=== PATIENT | male | born 1975 | race Asian ===

== ENCOUNTER 2022-12-23 16:54 | Emergency (ER) | payer OTHER ==
[~2022-12-23] VITALS: Ht 172.7 cm; Wt 88.5 kg
[2022-12-23] MEDS ORDERED: HYDR-4038 PO (17:01)
[2022-12-23] MEDS ORDERED: LOSA100T23 PO (17:01)
[2022-12-23] MEDS ORDERED: METF-379 PO (17:01)
[2022-12-23] MEDS ORDERED: LABE200T9 PO (17:01)
[2022-12-23 17:02] VITALS: BP_SYST 177; PULSE 90; RESP 16; TEMP 97.4; O2SAT 96
[2022-12-23 18:26] LABS: BASOPHILS # (AUTO) 0.1 K/uL (0.0-0.2); BASOPHILS % (AUTO) 0.8 % (0.0-2.0); EOSINOPHILS # (AUTO) 0.4 K/uL (0.0-0.4); EOSINOPHILS % (AUTO) 4.7 % (0.0-4.0); HEMATOCRIT 42.1 % (36-54); HEMOGLOBIN 13.8 g/dL (14.0-18.0); LYMPHOCYTES # (AUTO) 2.2 K/uL (1.0-5.5); LYMPHOCYTES % (AUTO) 26.1 % (20.5-51.5); MEAN CORPUSCULAR HEMOGLOBIN 28 pg (27-31); MEAN CORPUSCULAR HGB CONC 33 % (32-36); MEAN CORPUSCULAR VOLUME 84 fL (79.0-98.0); MONOCYTES # (AUTO) 0.8 K/uL (0.0-1.0); NEUTROPHILS # (AUTO) 5.1 K/uL (1.8-7.7); NEUTROPHILS % (AUTO) 59.4 % (40.0-70.0); PLATELET COUNT (AUTO) 254 K/uL (130-430); RED BLOOD CELL COUNT(AUTO) 4.99 MIL/uL (4.2-6.2); RED CELL DISTRIBUTION WIDTH 14.3 % (9.0-15.0); WHITE BLOOD COUNT (AUTO) 8.6 K/uL (4.8-10.8)
[2022-12-23 18:28] LABS: ERYTHROCYTE SEDIMENTATION RATE 10 MM/HR (0-15)
[2022-12-23] MEDS ORDERED: METOCLOPRAMIDE HCL 10 MG/2 ML VIAL IVP ONE (18:30)
[2022-12-23] MEDS ORDERED: DIPHENHYDRAMINE INJ 50 MG/ML VIAL IVP ONE (18:30)
[2022-12-23 18:31] LABS: CALCIUM 9.5 mg/dL (8.4-11.0); CREATININE 1.16 mg/dL (0.55-1.30); POTASSIUM 3.6 mmol/L (3.5-5.1)
[2022-12-23 18:34] LABS: PROTHROMBIN TIME 9.9 SECS (9.5-12.5)
[2022-12-23 18:56] LABS: ALBUMIN 4.1 g/dL (3.4-4.8); TOTAL BILIRUBIN 0.4 mg/dL (0.0-1.0); TOTAL PROTEIN, SERUM 7.5 g/dL (6.4-8.3)
[2022-12-23] MEDS ORDERED: IBUP-1971 PO (19:49)
[2022-12-23] MEDS ORDERED: HYDR-3927 PO (19:50)
[2022-12-23 20:29] VITALS: BP_SYST 143; PULSE 72; RESP 19; O2SAT 99
== END 2022-12-23 20:29 | disposition home or self-care (01) ==
LOC: SED 16:54
DX: R51.9 Headache, unspecified (principal); I10 Essential (primary) hypertension; Z79.899 Other long term (current) drug therapy
CPT/HCPCS: 99285; 96374; 70450; 96375; 80053; 85025; 85610; 85651; 85730; 36415; 76376; 82397; J1200; J2765

== ENCOUNTER 2023-01-08 16:34 | Emergency (ER) | payer OTHER ==
[~2023-01-08] VITALS: Ht 172.7 cm; Wt 88.5 kg
[~2023-01-08 16:34] MED LIST: HYDR-3927 PO; HYDR-4038 PO; IBUP-1971 PO; LABE200T9 PO; LOSA100T24 PO; METF-379 PO
[2023-01-08 16:55] VITALS: BP_SYST 158; PULSE 79; RESP 18; TEMP 98.2; O2SAT 96
[2023-01-08] MEDS ORDERED: LORA10CA PO (17:47)
[2023-01-08] MEDS ORDERED: IBUP-1971 PO (17:47)
== END 2023-01-08 17:55 | disposition home or self-care (01) ==
LOC: SED 16:34
DX: R51.9 Headache, unspecified (principal); R09.81 Nasal congestion; Z79.899 Other long term (current) drug therapy
CPT/HCPCS: 99282

== ENCOUNTER 2023-01-17 08:49 | Inpatient (IN) | payer OTHER ==
[~2023-01-17] VITALS: Ht 172.7 cm; Wt 88.5 kg
[~2023-01-17 08:49] MED LIST changes: +LORA10CA PO
[2023-01-17 09:00] VITALS: BP_SYST 180; PULSE 80; RESP 18; TEMP 98.3; O2SAT 96
[2023-01-17] MEDS ORDERED: ONDANSETRON HCL 4 MG/2 ML VIAL IVP ONE (09:15)
[2023-01-17] MEDS ORDERED: KETOROLAC TROMETHAMINE 30 MG VIAL IVP ONE (09:15)
[2023-01-17] MEDS ORDERED: NACL 0.9% 1,000 ML IV ONE (09:15)
[2023-01-17 09:50] LABS: BASOPHILS % (AUTO) 0.6 % (0.0-2.0); EOSINOPHILS # (AUTO) 0.2 K/uL (0.0-0.4); EOSINOPHILS % (AUTO) 2.7 % (0.0-4.0); HEMATOCRIT 42.5 % (36-54); HEMOGLOBIN 13.9 g/dL (14.0-18.0); LYMPHOCYTES # (AUTO) 0.9 K/uL (1.0-5.5); LYMPHOCYTES % (AUTO) 10.6 % (20.5-51.5); MEAN CORPUSCULAR HEMOGLOBIN 28 pg (27-31); MEAN CORPUSCULAR HGB CONC 33 % (32-36); MEAN CORPUSCULAR VOLUME 84 fL (79.0-98.0); MONOCYTES # (AUTO) 0.6 K/uL (0.0-1.0); MONOCYTES % (AUTO) 6.7 % (1.7-9.3); NEUTROPHILS # (AUTO) 6.5 K/uL (1.8-7.7); NEUTROPHILS % (AUTO) 79.4 % (40.0-70.0); PLATELET COUNT (AUTO) 261 K/uL (130-430); RED BLOOD CELL COUNT(AUTO) 5.05 MIL/uL (4.2-6.2); RED CELL DISTRIBUTION WIDTH 14.4 % (9.0-15.0); WHITE BLOOD COUNT (AUTO) 8.2 K/uL (4.8-10.8)
[2023-01-17 09:59] LABS: BILIRUBIN,URINE NEGATIVE (NEGATIVE); BLOOD, URINE NEGATIVE (NEGATIVE); CLARITY/URINE Clear (CLEAR); COLOR,URINE YELLOW (YELLOW); GLUCOSE,URINE NEGATIVE (NEGATIVE); KETONES,URINE NEGATIVE (NEGATIVE); LEUKOCYTE ESTERASE ,URINE NEGATIVE (NEGATIVE); NITRITE, URINE NEGATIVE (NEGATIVE); PROTEIN URINE NEGATIVE (NEGATIVE); UROBILINOGEN,URINE 0.2 (0.2-1.0)
[2023-01-17 09:59] LABS: CALCIUM 9.4 mg/dL (8.4-11.0); CREATININE 0.91 mg/dL (0.55-1.30); POTASSIUM 3.6 mmol/L (3.5-5.1)
[2023-01-17 10:07] LABS: ALBUMIN 4.2 g/dL (3.4-4.8); TOTAL BILIRUBIN 1.2 mg/dL (0.0-1.0); TOTAL PROTEIN, SERUM 7.9 g/dL (6.4-8.3)
[2023-01-17] MEDS ORDERED: LABETALOL 100 MG/ 20ML VIAL IVP ONE (10:45)
[2023-01-17] MEDS ORDERED: MORPHINE 4 MG INJ. 4 MG/ML VIAL IVP ONE (10:45)
[2023-01-17] MEDS: hydrALAZINE HCL 20 MG/ML VIAL IVP PRN (15:02)
[2023-01-17] MEDS ORDERED: ATOR40TA68 PO (17:20)
[2023-01-17] MEDS ORDERED: AMLO5TAB92 PO (17:20)
[2023-01-17] MEDS ORDERED: NALOXONE HCL 0.4 MG/ML AMP (NARCAN) IVP PRN ×3 (18:30→22:00)
[2023-01-17] MEDS ORDERED: MORPHINE 4 MG INJ. 4 MG/ML VIAL IVP PRN (18:30)
[2023-01-17] MEDS ORDERED: MORPHINE 2 MG/ML INJ. SYRINGE IVP PRN (18:30)
[2023-01-17 20:00] VITALS: BP_SYST 130; PULSE 119; RESP 18; TEMP 99.8; O2SAT 95
[2023-01-17] MEDS: METOPROLOL SUCCINATE 25 MG TAB.SR.24H (TOPROL XL) PO SCH (20:42)
[2023-01-17] MEDS ORDERED: ONDANSETRON HCL 4 MG/2 ML VIAL IVP PRN (22:00)
[2023-01-17] MEDS ORDERED: LORazepam 2 MG/ML VIAL IVP PRN (22:00)
[2023-01-17 22:02] VITALS: BP_SYST 130; PULSE 91; RESP 18; TEMP 99.8; O2SAT 95
[2023-01-17] MEDS: NACL 0.9% 1,000 ML IV SCH (23:15)
[2023-01-17] MEDS: NORMAL SALINE 5 ML DISP.SYRIN IVF SCH (23:25)
[2023-01-17] MEDS: ACETAMINOPHEN 325 MG TABLET PO PRN (23:25)
[2023-01-17] MEDS: INSULIN REGULAR, HUMAN 100 UNITS/ML, 3 ML VIAL (humuLIN R) SUBCUT PRN (23:51)
[2023-01-18] VITALS (11 sets, daily range): BP systolic 126–157; PULSE 78–126; RESP 17–20; TEMP 98.5–99.4; O2SAT 96–98
[2023-01-18 05:28] LABS: BASOPHILS % (AUTO) 0.1 % (0.0-2.0); HEMATOCRIT 41.6 % (36-54); HEMOGLOBIN 13.7 g/dL (14.0-18.0); LYMPHOCYTES # (AUTO) 0.4 K/uL (1.0-5.5); LYMPHOCYTES % (AUTO) 4.1 % (20.5-51.5); MEAN CORPUSCULAR HEMOGLOBIN 28 pg (27-31); MEAN CORPUSCULAR HGB CONC 33 % (32-36); MEAN CORPUSCULAR VOLUME 84 fL (79.0-98.0); MONOCYTES # (AUTO) 0.2 K/uL (0.0-1.0); MONOCYTES % (AUTO) 2.3 % (1.7-9.3); NEUTROPHILS # (AUTO) 10.1 K/uL (1.8-7.7); NEUTROPHILS % (AUTO) 93.5 % (40.0-70.0); PLATELET COUNT (AUTO) 227 K/uL (130-430); RED BLOOD CELL COUNT(AUTO) 4.94 MIL/uL (4.2-6.2); RED CELL DISTRIBUTION WIDTH 14.6 % (9.0-15.0); WHITE BLOOD COUNT (AUTO) 10.8 K/uL (4.8-10.8)
[2023-01-18] MEDS: NORMAL SALINE 5 ML DISP.SYRIN IVF SCH ×3 (06:14→20:26)
[2023-01-18 06:25] LABS: ALBUMIN 3.6 g/dL (3.4-4.8); CALCIUM 8.6 mg/dL (8.4-11.0); CREATININE 1.58 mg/dL (0.55-1.30); PHOSPHORUS 5.5 mg/dL (2.7-4.5); POTASSIUM 3.9 mmol/L (3.5-5.1); TOTAL BILIRUBIN 4.6 mg/dL (0.0-1.0); TOTAL PROTEIN, SERUM 7.2 g/dL (6.4-8.3)
[2023-01-18] MEDS: LORATADINE 10 MG TABLET PO SCH (08:48)
[2023-01-18] MEDS: LOSARTAN POTASSIUM 50 MG TABLET (COZAAR) PO SCH (08:48)
[2023-01-18] MEDS: METOPROLOL SUCCINATE 25 MG TAB.SR.24H (TOPROL XL) PO SCH ×2 (08:49→20:22)
[2023-01-18] MEDS: hydrALAZINE HCL 25 MG TABLET PO SCH (08:49)
[2023-01-18] MEDS: amLODIPine BESYLATE 5 MG TABLET PO SCH (08:50)
[2023-01-18] MEDS ORDERED: LABETALOL HCL 100 MG TABLET PO SCH (09:00)
[2023-01-18] MEDS: ACETAMINOPHEN 325 MG TABLET PO PRN ×2 (13:55→18:43)
[2023-01-18] MEDS: hydrALAZINE HCL 20 MG/ML VIAL IVP PRN (18:42)
[2023-01-18 19:18] LABS: CALCIUM 8.7 mg/dL (8.4-11.0); CREATININE 1.24 mg/dL (0.55-1.30); POTASSIUM 3.8 mmol/L (3.5-5.1)
[2023-01-18] MEDS: INSULIN REGULAR, HUMAN 100 UNITS/ML, 3 ML VIAL (humuLIN R) SUBCUT PRN (20:26)
[2023-01-18] MEDS: HYDROcodone/ACETAMIN 10-325 MG TAB PO PRN (20:31)
[2023-01-18] MEDS ORDERED: ATORVASTATIN 20 MG TABLET PO SCH (21:00)
[2023-01-19] VITALS (9 sets, daily range): BP systolic 147–162; PULSE 63–103; RESP 17–20; TEMP 96.9–98.8; O2SAT 95–98
[2023-01-19] MEDS ORDERED: hydrALAZINE HCL 20 MG/ML VIAL ONE (00:46)
[2023-01-19] MEDS: hydrALAZINE HCL 20 MG/ML VIAL IVP PRN ×2 (00:55→16:35)
[2023-01-19] MEDS: HYDROcodone/ACETAMIN 10-325 MG TAB PO PRN ×3 (00:55→17:55)
[2023-01-19] MEDS: NACL 0.9% 1,000 ML IV SCH (00:56)
[2023-01-19] MEDS: NORMAL SALINE 5 ML DISP.SYRIN IVF SCH ×3 (03:19→22:00)
[2023-01-19] MEDS: INSULIN REGULAR, HUMAN 100 UNITS/ML, 3 ML VIAL (humuLIN R) SUBCUT PRN ×4 (05:36→22:05)
[2023-01-19 07:11] LABS: BASOPHILS % (AUTO) 0.2 % (0.0-2.0); EOSINOPHILS % (AUTO) 0.6 % (0.0-4.0); HEMATOCRIT 40.9 % (36-54); HEMOGLOBIN 13.4 g/dL (14.0-18.0); LYMPHOCYTES # (AUTO) 0.4 K/uL (1.0-5.5); LYMPHOCYTES % (AUTO) 6.6 % (20.5-51.5); MEAN CORPUSCULAR HEMOGLOBIN 28 pg (27-31); MEAN CORPUSCULAR HGB CONC 33 % (32-36); MEAN CORPUSCULAR VOLUME 85 fL (79.0-98.0); MONOCYTES # (AUTO) 0.4 K/uL (0.0-1.0); MONOCYTES % (AUTO) 6.7 % (1.7-9.3); NEUTROPHILS # (AUTO) 5.1 K/uL (1.8-7.7); NEUTROPHILS % (AUTO) 85.9 % (40.0-70.0); PLATELET COUNT (AUTO) 206 K/uL (130-430); RED BLOOD CELL COUNT(AUTO) 4.84 MIL/uL (4.2-6.2); RED CELL DISTRIBUTION WIDTH 14.5 % (9.0-15.0); WHITE BLOOD COUNT (AUTO) 5.9 K/uL (4.8-10.8)
[2023-01-19 07:17] LABS: ALBUMIN 3.3 g/dL (3.4-4.8); CALCIUM 8.5 mg/dL (8.4-11.0); CREATININE 0.99 mg/dL (0.55-1.30); POTASSIUM 3.7 mmol/L (3.5-5.1)
[2023-01-19] MEDS: LORATADINE 10 MG TABLET PO SCH (09:14)
[2023-01-19] MEDS: hydrALAZINE HCL 25 MG TABLET PO SCH (09:14)
[2023-01-19] MEDS: LOSARTAN POTASSIUM 50 MG TABLET (COZAAR) PO SCH (09:14)
[2023-01-19] MEDS: amLODIPine BESYLATE 5 MG TABLET PO SCH (09:15)
[2023-01-19] MEDS: METOPROLOL SUCCINATE 25 MG TAB.SR.24H (TOPROL XL) PO SCH (09:16)
[2023-01-19] MEDS ORDERED: LABETALOL HCL 20 MG/4 ML CARTRIDGE IVP PRN (13:45)
[2023-01-19 14:58] LABS: BILIRUBIN,URINE 1+ (NEGATIVE); BLOOD, URINE NEGATIVE (NEGATIVE); CLARITY/URINE Clear (CLEAR); GLUCOSE,URINE Trace (NEGATIVE); KETONES,URINE NEGATIVE (NEGATIVE); LEUKOCYTE ESTERASE ,URINE NEGATIVE (NEGATIVE); NITRITE, URINE NEGATIVE (NEGATIVE); PROTEIN URINE 1+ (NEGATIVE)
[2023-01-19 15:22] LABS: COLOR,URINE AMBER (YELLOW); RBC,URINE NONE SEEN /HPF (0-3); WBC,URINE 0-3 /HPF (0-3)
[2023-01-19 15:23] LABS: BACTERIA,URINE None Seen /HPF (None Seen); MUCUS,URINE None Seen /LPF (None Seen)
[2023-01-19] MEDS: ACETAMINOPHEN 325 MG TABLET PO PRN (22:13)
[2023-01-20] VITALS: BP_SYST 144; PULSE 84; RESP 18; TEMP 97; O2SAT 99
[2023-01-20 03:44] VITALS: PULSE 90
[2023-01-20] MEDS: NORMAL SALINE 5 ML DISP.SYRIN IVF SCH ×3 (06:55→22:24)
[2023-01-20] MEDS: HYDROcodone/ACETAMIN 5-325 MG TAB (NORCO/ VICODIN) PO PRN ×2 (07:03→17:47)
[2023-01-20 08:17] VITALS: BP_SYST 170; PULSE 94; RESP 17; TEMP 98.8; O2SAT 98
[2023-01-20] MEDS: LOSARTAN POTASSIUM 50 MG TABLET (COZAAR) PO SCH (08:23)
[2023-01-20] MEDS: NIFEDIPINE 90 MG TABLET.SA (PROCARDIA XL 90 MG) PO SCH (08:23)
[2023-01-20] MEDS: LORATADINE 10 MG TABLET PO SCH (08:23)
[2023-01-20 08:37] LABS: ALBUMIN 3.4 g/dL (3.4-4.8); CALCIUM 8.9 mg/dL (8.4-11.0); CREATININE 0.89 mg/dL (0.55-1.30); POTASSIUM 3.8 mmol/L (3.5-5.1); TOTAL BILIRUBIN 1.3 mg/dL (0.0-1.0); TOTAL PROTEIN, SERUM 7.7 g/dL (6.4-8.3)
[2023-01-20 08:48] LABS: BASOPHILS % (AUTO) 0.5 % (0.0-2.0); EOSINOPHILS # (AUTO) 0.1 K/uL (0.0-0.4); EOSINOPHILS % (AUTO) 2.6 % (0.0-4.0); HEMATOCRIT 42.8 % (36-54); HEMOGLOBIN 13.9 g/dL (14.0-18.0); LYMPHOCYTES # (AUTO) 0.7 K/uL (1.0-5.5); LYMPHOCYTES % (AUTO) 14.2 % (20.5-51.5); MEAN CORPUSCULAR HEMOGLOBIN 27 pg (27-31); MEAN CORPUSCULAR HGB CONC 33 % (32-36); MEAN CORPUSCULAR VOLUME 84 fL (79.0-98.0); MONOCYTES # (AUTO) 0.4 K/uL (0.0-1.0); MONOCYTES % (AUTO) 8.9 % (1.7-9.3); NEUTROPHILS # (AUTO) 3.5 K/uL (1.8-7.7); NEUTROPHILS % (AUTO) 73.8 % (40.0-70.0); PLATELET COUNT (AUTO) 228 K/uL (130-430); RED BLOOD CELL COUNT(AUTO) 5.11 MIL/uL (4.2-6.2); RED CELL DISTRIBUTION WIDTH 14.6 % (9.0-15.0); WHITE BLOOD COUNT (AUTO) 4.7 K/uL (4.8-10.8)
[2023-01-20] MEDS: hydrALAZINE HCL 20 MG/ML VIAL IVP PRN (09:50)
[2023-01-20 12:00] VITALS: BP_SYST 150; PULSE 96; RESP 16; TEMP 98.8; O2SAT 98
[2023-01-20] MEDS ORDERED: CHLORTHALIDONE 25 MG TABLET (HYGROTON) PO ONE (12:00)
[2023-01-20] MEDS: INSULIN REGULAR, HUMAN 100 UNITS/ML, 3 ML VIAL (humuLIN R) SUBCUT PRN ×2 (12:30→17:52)
[2023-01-20] MEDS ORDERED: POLYETHYLENE GLYCOL 3350, 17 GM/ POWD.PACK PO PRN (13:00)
[2023-01-20] MEDS: ACETAMINOPHEN 325 MG TABLET PO PRN (14:38)
[2023-01-20 16:00] VITALS: BP_SYST 150; PULSE 110; RESP 16; TEMP 98.8; O2SAT 97
[2023-01-20] MEDS ORDERED: cefTRIAXone 1 GM in D5W 50 ML IV SCH (19:15)
[2023-01-20 20:00] VITALS: BP_SYST 135; PULSE 98; RESP 17; TEMP 97.5; O2SAT 97
[2023-01-20] MEDS ORDERED: OMEPRAZOLE Non-Formulary 20 MG CAPSULE.DR PO SCH (21:00)
[2023-01-20] MEDS ORDERED: cefTRIAXone 1 GM VIAL ONE (22:01)
[2023-01-20] MEDS: HYDROcodone/ACETAMIN 10-325 MG TAB PO PRN (22:23)
[2023-01-20] MEDS: PANTOPRAZOLE SODIUM 40 MG/VIAL (PROTONIX) IVP SCH (23:12)
[2023-01-21] VITALS (10 sets, daily range): BP systolic 122–164; PULSE 89–115; RESP 16–18; TEMP 97.9–98.2; O2SAT 98–100
[2023-01-21] MEDS: NORMAL SALINE 5 ML DISP.SYRIN IVF SCH ×3 (06:12→22:50)
[2023-01-21 08:01] LABS: BASOPHILS % (AUTO) 0.7 % (0.0-2.0); EOSINOPHILS # (AUTO) 0.2 K/uL (0.0-0.4); EOSINOPHILS % (AUTO) 2.8 % (0.0-4.0); HEMATOCRIT 43.9 % (36-54); HEMOGLOBIN 14.5 g/dL (14.0-18.0); MEAN CORPUSCULAR HEMOGLOBIN 28 pg (27-31); MEAN CORPUSCULAR HGB CONC 33 % (32-36); MEAN CORPUSCULAR VOLUME 84 fL (79.0-98.0); MONOCYTES # (AUTO) 0.8 K/uL (0.0-1.0); MONOCYTES % (AUTO) 14.6 % (1.7-9.3); NEUTROPHILS # (AUTO) 3.6 K/uL (1.8-7.7); NEUTROPHILS % (AUTO) 63.9 % (40.0-70.0); PLATELET COUNT (AUTO) 260 K/uL (130-430); RED BLOOD CELL COUNT(AUTO) 5.25 MIL/uL (4.2-6.2); RED CELL DISTRIBUTION WIDTH 14.6 % (9.0-15.0); WHITE BLOOD COUNT (AUTO) 5.6 K/uL (4.8-10.8)
[2023-01-21 08:33] LABS: ALBUMIN 3.6 g/dL (3.4-4.8); CALCIUM 9.3 mg/dL (8.4-11.0); CREATININE 0.95 mg/dL (0.55-1.30); POTASSIUM 3.7 mmol/L (3.5-5.1); TOTAL BILIRUBIN 0.9 mg/dL (0.0-1.0); TOTAL PROTEIN, SERUM 7.9 g/dL (6.4-8.3)
[2023-01-21] MEDS: CHLORTHALIDONE 25 MG TABLET (HYGROTON) PO SCH (09:15)
[2023-01-21] MEDS: NIFEDIPINE 90 MG TABLET.SA (PROCARDIA XL 90 MG) PO SCH (09:16)
[2023-01-21] MEDS: PANTOPRAZOLE SODIUM 40 MG/VIAL (PROTONIX) IVP SCH (09:16)
[2023-01-21] MEDS: LORATADINE 10 MG TABLET PO SCH (09:17)
[2023-01-21] MEDS: LOSARTAN POTASSIUM 50 MG TABLET (COZAAR) PO SCH (09:17)
[2023-01-21] MEDS: INSULIN REGULAR, HUMAN 100 UNITS/ML, 3 ML VIAL (humuLIN R) SUBCUT PRN ×3 (11:32→21:36)
[2023-01-21] MEDS: ACETAMINOPHEN 325 MG TABLET PO PRN ×2 (15:48→21:37)
[2023-01-21] MEDS: HYDROcodone/ACETAMIN 10-325 MG TAB PO PRN (20:21)
[2023-01-21] MEDS: cefTRIAXone 1 GM in D5W 50 ML IV SCH (21:20)
[2023-01-22] VITALS (11 sets, daily range): BP systolic 129–148; PULSE 90–110; RESP 18; TEMP 96.9–99; O2SAT 96–98
[2023-01-22 06:34] LABS: ERYTHROCYTE SEDIMENTATION RATE 22 MM/HR (0-15)
[2023-01-22] MEDS: NORMAL SALINE 5 ML DISP.SYRIN IVF SCH ×3 (06:38→23:48)
[2023-01-22 06:41] LABS: BASOPHILS # (AUTO) 0.1 K/uL (0.0-0.2); BASOPHILS % (AUTO) 1.4 % (0.0-2.0); EOSINOPHILS # (AUTO) 0.2 K/uL (0.0-0.4); EOSINOPHILS % (AUTO) 4.9 % (0.0-4.0); HEMATOCRIT 41.2 % (36-54); HEMOGLOBIN 13.8 g/dL (14.0-18.0); LYMPHOCYTES # (AUTO) 1.3 K/uL (1.0-5.5); MEAN CORPUSCULAR HEMOGLOBIN 28 pg (27-31); MEAN CORPUSCULAR HGB CONC 34 % (32-36); MEAN CORPUSCULAR VOLUME 83 fL (79.0-98.0); MONOCYTES # (AUTO) 0.9 K/uL (0.0-1.0); MONOCYTES % (AUTO) 20.8 % (1.7-9.3); NEUTROPHILS # (AUTO) 1.9 K/uL (1.8-7.7); NEUTROPHILS % (AUTO) 43.9 % (40.0-70.0); PLATELET COUNT (AUTO) 272 K/uL (130-430); RED BLOOD CELL COUNT(AUTO) 4.96 MIL/uL (4.2-6.2); RED CELL DISTRIBUTION WIDTH 14.5 % (9.0-15.0); WHITE BLOOD COUNT (AUTO) 4.4 K/uL (4.8-10.8)
[2023-01-22 07:02] LABS: CALCIUM 9.1 mg/dL (8.4-11.0); CREATININE 1.02 mg/dL (0.55-1.30)
[2023-01-22] MEDS: PANTOPRAZOLE SODIUM 40 MG/VIAL (PROTONIX) IVP SCH (09:55)
[2023-01-22] MEDS: LORATADINE 10 MG TABLET PO SCH (10:35)
[2023-01-22] MEDS: NIFEDIPINE 90 MG TABLET.SA (PROCARDIA XL 90 MG) PO SCH (10:35)
[2023-01-22] MEDS: CHLORTHALIDONE 25 MG TABLET (HYGROTON) PO SCH (10:35)
[2023-01-22] MEDS: LOSARTAN POTASSIUM 50 MG TABLET (COZAAR) PO SCH (10:35)
[2023-01-22] MEDS ORDERED: BUPIVACAINE /PF 0.25% 30 ML VIAL INJ ONE (15:48)
[2023-01-22] MEDS ORDERED: fentaNYL CITRATE/PF 100 MCG/2 ML AMP ONE ×2 (15:48→15:52)
[2023-01-22] MEDS ORDERED: ROCURONIUM BROMIDE 10 MG/ML (ZEMURON) ONE (15:48)
[2023-01-22] MEDS ORDERED: DEXAMETHASONE SOD PHOSPHATE 4 MG/ML VIAL ONE (15:48)
[2023-01-22] MEDS ORDERED: SUCCINYLCHOLINE CHLORIDE 20 MG/ML(QUELICIN) ONE (15:48)
[2023-01-22] MEDS ORDERED: LR 1,000 ML IV.SOLN IV ONE (15:48)
[2023-01-22] MEDS ORDERED: NS 50 ML BAG IV ONE (15:48)
[2023-01-22] MEDS ORDERED: ACETAMINOPHEN I.V. 1000 MG 100 ML IV ONE (16:27)
[2023-01-22] MEDS ORDERED: NALOXONE HCL 0.4 MG/ML AMP (NARCAN) IVP PRN ×3 (17:00)
[2023-01-22] MEDS ORDERED: ONDANSETRON HCL 4 MG/2 ML VIAL IVP PRN (17:00)
[2023-01-22] MEDS ORDERED: hydrALAZINE HCL 20 MG/ML VIAL IV PRN (17:00)
[2023-01-22] MEDS ORDERED: HYDROmorphone 1 MG/ML INJ. CARTRIDGE IVP PRN (17:00)
[2023-01-22] MEDS ORDERED: MEPERIDINE HCL/PF 25 MG/ML DISP.SYRIN IVP PRN (17:30)
[2023-01-22] MEDS ORDERED: HYDROmorphone 1 MG/ML INJ. CARTRIDGE ONE (17:49)
[2023-01-22] MEDS: HYDROmorphone 1 MG/ML INJ. CARTRIDGE IVP PRN ×2 (17:57→18:15)
[2023-01-22] MEDS: cefTRIAXone 1 GM in D5W 50 ML IV SCH (20:09)
[2023-01-22] MEDS: HYDROcodone/ACETAMIN 10-325 MG TAB PO PRN (20:09)
[2023-01-22] MEDS: INSULIN REGULAR, HUMAN 100 UNITS/ML, 3 ML VIAL (humuLIN R) SUBCUT PRN (20:13)
[2023-01-23] VITALS (7 sets, daily range): BP systolic 126–148; PULSE 101–111; RESP 16–18; TEMP 97.7–98.4; O2SAT 96–99
[2023-01-23] MEDS: NORMAL SALINE 5 ML DISP.SYRIN IVF SCH ×2 (06:06→13:35)
[2023-01-23] MEDS: INSULIN REGULAR, HUMAN 100 UNITS/ML, 3 ML VIAL (humuLIN R) SUBCUT PRN ×3 (06:12→17:15)
[2023-01-23 07:54] LABS: BASOPHILS % (AUTO) 0.2 % (0.0-2.0); HEMATOCRIT 43.7 % (36-54); HEMOGLOBIN 14.5 g/dL (14.0-18.0); LYMPHOCYTES # (AUTO) 1.2 K/uL (1.0-5.5); LYMPHOCYTES % (AUTO) 15.3 % (20.5-51.5); MEAN CORPUSCULAR HEMOGLOBIN 28 pg (27-31); MEAN CORPUSCULAR HGB CONC 33 % (32-36); MEAN CORPUSCULAR VOLUME 84 fL (79.0-98.0); MONOCYTES # (AUTO) 0.7 K/uL (0.0-1.0); MONOCYTES % (AUTO) 9.3 % (1.7-9.3); NEUTROPHILS # (AUTO) 5.9 K/uL (1.8-7.7); NEUTROPHILS % (AUTO) 75.2 % (40.0-70.0); PLATELET COUNT (AUTO) 338 K/uL (130-430); RED BLOOD CELL COUNT(AUTO) 5.21 MIL/uL (4.2-6.2); RED CELL DISTRIBUTION WIDTH 14.6 % (9.0-15.0)
[2023-01-23 08:01] LABS: ALBUMIN 3.9 g/dL (3.4-4.8); CALCIUM 8.7 mg/dL (8.4-11.0); CREATININE 1.04 mg/dL (0.55-1.30); POTASSIUM 3.7 mmol/L (3.5-5.1); TOTAL PROTEIN, SERUM 8.7 g/dL (6.4-8.3)
[2023-01-23 08:07] LABS: WHITE BLOOD COUNT (AUTO) 7.9 K/uL (4.8-10.8)
[2023-01-23 08:17] LABS: ERYTHROCYTE SEDIMENTATION RATE 29 MM/HR (0-15)
[2023-01-23] MEDS: LORATADINE 10 MG TABLET PO SCH (08:40)
[2023-01-23] MEDS: NIFEDIPINE 90 MG TABLET.SA (PROCARDIA XL 90 MG) PO SCH (08:40)
[2023-01-23] MEDS: LOSARTAN POTASSIUM 50 MG TABLET (COZAAR) PO SCH (08:41)
[2023-01-23] MEDS: CHLORTHALIDONE 25 MG TABLET (HYGROTON) PO SCH (08:41)
[2023-01-23] MEDS: PANTOPRAZOLE SODIUM 40 MG/VIAL (PROTONIX) IVP SCH (09:23)
[2023-01-23] MEDS ORDERED: DOCUSATE SODIUM 100 MG CAPSULE PO ONE (11:00)
[2023-01-23] MEDS ORDERED: POLY17PO4 PO (15:50)
[2023-01-23] MEDS ORDERED: DOCU-144 PO (15:50)
[2023-01-23] MEDS ORDERED: DOCUSATE SODIUM 100 MG CAPSULE PO SCH (21:00)
== END 2023-01-23 17:40 | disposition home or self-care (01) | DRG 418 ==
LOC: SED 08:49 → SMU 13:00 → STU 23:54 → SMU 01-19 18:57
PROVIDERS: ADMIT Preventive Medicine Preventive Medicine/Occupational Environmental Medicine; ATTEND Preventive Medicine Preventive Medicine/Occupational Environmental Medicine
PROC: 5A09357 Assistance with Respiratory Ventilation, Less than 24 Consecutive Hours, Continuous Positive Airway Pressure (ICD-10-PCS; 2023-01-19)
PROC: 5A09357 Assistance with Respiratory Ventilation, Less than 24 Consecutive Hours, Continuous Positive Airway Pressure (ICD-10-PCS; 2023-01-21)
PROC: BF131ZZ Fluoroscopy of Gallbladder and Bile Ducts using Low Osmolar Contrast (ICD-10-PCS; 2023-01-22)
PROC: 0FT44ZZ Resection of Gallbladder, Percutaneous Endoscopic Approach (ICD-10-PCS; principal; 2023-01-22 15:48)
PROC: 5A09357 Assistance with Respiratory Ventilation, Less than 24 Consecutive Hours, Continuous Positive Airway Pressure (ICD-10-PCS; 2023-01-23)
DX: K80.64 Calculus of gallbladder and bile duct with chronic cholecystitis without obstruction (principal); N17.9 Acute kidney failure, unspecified; R17 Unspecified jaundice; N20.0 Calculus of kidney; E78.5 Hyperlipidemia, unspecified; D72.819 Decreased white blood cell count, unspecified; E88.09 Other disorders of plasma-protein metabolism, not elsewhere classified; R74.01 Elevation of levels of liver transaminase levels; N28.1 Cyst of kidney, acquired; K57.90 Diverticulosis of intestine, part unspecified, without perforation or abscess without bleeding; E11.65 Type 2 diabetes mellitus with hyperglycemia; Z79.1 Long term (current) use of non-steroidal anti-inflammatories (NSAID); Z79.899 Other long term (current) drug therapy; Z87.442 Personal history of urinary calculi; Z80.0 Family history of malignant neoplasm of digestive organs; Z87.891 Personal history of nicotine dependence; Z90.49 Acquired absence of other specified parts of digestive tract
CPT/HCPCS: 36415; 70551; 74181; 76000; 76376; 76705; 78226; 80048; 80053; 81000; 81003; 82150; 82962; 83605; 83690; 83735; 84100; 85025; 85651-TC; 87040; 88304; 93005; 93306; 94660; 94760; 99285; A9537; C1727; C9113; G0378; J0131; J0330; J0360; J0696; J1100; J1170; J1885; J2270; J2405; J3010; J3490; J7060; J7120